=== PATIENT | male | born 1960 | race Caucasian/White ===

== ENCOUNTER 2017-12-30 08:18 | Day surgery (SDC) | payer BC ==
[~2017-12-30 08:18] MED LIST: Lactated Ringers 1,000 ML IV SCH; Lidocaine 2% 5 ML SDV ONE; Propofol 200 MG/20 ML SDV ONE; fentaNYL 100 MCG/2 ML SDV ONE
--- NOTE | 2017-12-30 09:10 | PCM.PREANE ---
Preanesthetic Assessment - Anesthesia/Transfusion/Family Hx Anesthesia History: Prior Anesthesia Without Reaction Family History of Anesthesia Reaction: No Transfusion History: No Prior Transfusion(s) - Review of Systems General: No Symptoms Pulmonary: No Symptoms Cardiovascular: No Symptoms Gastrointestinal: No Symptoms Neurological: No Symptoms Other: Reports: None - Physical Assessment NPO Status Date: 12/29/17 Height: 1.85 m Weight: 98.43 kg ASA Class: 2 Mental Status: Alert & Oriented x3 Airway Class: Mallampati = 1 Dentition: Reports: Normal Dentition ROM/Head Extension: Full Lungs: Clear to Auscultation, Normal Respiratory Effort Cardiovascular: Regular Rate, Regular Rhythm - Allergies Allergies/Adverse Reactions: Allergies Allergy/AdvReac Type Severity Reaction Status Date / Time cephalexin Allergy Nausea and Verified 12/27/17 10:30 Vomiting clindamycin Allergy Nausea and Verified 12/27/17 10:30 Vomiting codeine Allergy Nausea and Verified 12/27/17 10:30 Vomiting - Anesthesia Plan Pre-Op Medication Ordered: None - Acknowledgements Anesthesia Type Planned: MAC Pt an Appropriate Candidate for the Planned Anesthesia: Yes Alternatives and Risks of Anesthesia Discussed w Pt/Guardian: Yes Pt/Guardian Understands and Agrees with Anesthesia Plan: Yes Additional Comments: PMH: Rheumatoid arthritis listed in active problem list. But pt co pain in hios , and had DJD c^ disease. Ho peripheral joint involvement. no signs of RA on exam of hands. Not on medications expected for a patient with RA. May be an error in the chart. Pt may have OA or DJD. Full cerv extension. PLAN: MAC PreAnesthesia Questionnaire HEENT History: Reports: None Gastrointestinal History: Reports: GERD Genitourinary History: Reports: None Musculoskeletal History: Reports: Arthritis, Fracture Other Musculoskeletal History: DJD, hx fx rt heel Dermatologic History: Reports: Eczema, Psoriasis - Past Surgical History Head Surgeries/Procedures: Reports: None HEENT Surgical History: Reports: Oral Surgery GI Surgical History: Reports: Hernia, Abdominal, Hernia, Inguinal Other GI Surgeries/Procedures: cynthia inguinal hernia repair x2, umbilical hernia repair Male Surgical History: Reports: Vasectomy - SUBSTANCE USE Smoking Status *Q: Former Smoker Tobacco Use Within Last Twelve Months: No Recreational Drug Use History: No - HOME MEDS Home Medications: Home Meds Flurbiprofen 50 mg PO BID 12/27/17 [History] Gluc HCl/Csa/Tsering Hy/Hyalur Ac [Glucosamine Chondroitin] 1 tab PO DAILY [History] Hydrocortisone [Hydrocortisone 1% Crm] 1 applic TOP ASDIRECTED PRN 12/27/17 [ History] Ibuprofen [Advil] 1 tab PO ASDIRECTED 12/27/17 [History] Magnesium Oxide [Magnesium] 400 mg PO DAILY 12/27/17 [History] Sucralfate 1 gm PO ASDIRECTED 12/27/17 [History] - CURRENT (IN HOUSE) MEDS Current Meds: Current Medications Lactated Ringer's (Ringers, Lactated) 1,000 mls @ 125 mls/hr IV ASDIRECTED LEONORA Discontinued Medications Fentanyl (Sublimaze) Confirm Administered Dose 100 mcg .ROUTE .STK-MED ONE Stop: 12/30/17 06:59 Lidocaine (Xylocaine-Mpf 2%) Confirm Administered Dose 5 ml .ROUTE .STK-MED ONE Stop: 12/30/17 06:59 Propofol (Diprivan 20 Ml) Confirm Administered Dose 400 mg .ROUTE .STK-MED ONE Stop: 12/30/17 06:59
[2017-12-30] MEDS ORDERED: Glycopyrrolate 0.2 MG/ML SDV ONE (09:54)
--- NOTE | 2017-12-30 10:27 | PCM.OPNOTE ---
- General Post-Op/Procedure Note Date of Surgery/Procedure: 12/30/17 Operative Procedure(s): Colonoscopy with cold transverse colon polypectomy Pre Op Diagnosis: Desire for colorectal cancer screening. Post-Op Diagnosis: Transverse colon polyp. Sigmoid diverticulosis. Anesthesia Technique: MAC (ASA II) Primary Surgeon: Alonso Ruiz Condition: Good Free Text/Narrative:: DICTATION [id number] CPT CODE [id number]
[2017-12-30] MEDS ORDERED: Lactated Ringers 1,000 ML IV SCH (10:30)
--- NOTE | 2017-12-30 10:38 | PCM.POSTAN ---
POST ANESTHESIA ASSESSMENT - MENTAL STATUS Mental Status: Alert, Oriented - RESPIRATORY Respiratory Status: Respiratory Rate WNL, Airway Patent, O2 Saturation Stable - CARDIOVASCULAR CV Status: Pulse Rate WNL, Blood Pressure Stable - GASTROINTESTINAL GI Status: No Symptoms - PAIN Pain Score: 0 - POST OP HYDRATION Hydration Status: Adequate & Stable
--- NOTE | 2017-12-30 10:52 | PCM48HPAN ---
Post Anesthesia Note - EVALUATION WITHIN 48HRS OF ANESTHETIC Vital Signs in Normal Range: Yes Patient Participated in Evaluation: Yes Respiratory Function Stable: Yes Airway Patent: Yes Cardiovascular Function Stable: Yes Hydration Status Stable: Yes Pain Control Satisfactory: Yes Nausea and Vomiting Control Satisfactory: Yes Mental Status Recovered: Yes Resp Rate: 12
--- NOTE | 2017-12-30 11:28 | OR ---
SURGEON: Alonso Ruiz M.D. DATE OF PROCEDURE: 12/30/2017 OPERATION PERFORMED: Colonoscopy with cold transverse colon polypectomy. ANESTHESIA: MAC. ASA CLASSIFICATION: II. PREOPERATIVE DIAGNOSIS: Desire for colorectal cancer screening. POSTOPERATIVE DIAGNOSES: 1. Transverse colon polyp. 2. Sigmoid diverticulosis. DESCRIPTION OF PROCEDURE: The patient was taken to the endoscopy room, positioned on the endoscopy table in the left lateral decubitus position. Time-out was called for appropriate identification of the patient and procedure. Monitored anesthesia care was provided. The colonoscope was inserted into the rectum and advanced with moderate difficulty to the cecum where the colonoscope was retroflexed to visualize the ascending colon from below. The colonoscope was then straightened and slowly withdrawn. The cecum and ascending colon showed no tumors, polyps, diverticula, or angiodysplastic changes. One small polyp was encountered in the transverse colon and removed with cold biopsy forceps. The remainder of the transverse colon, splenic flexure, and descending colon showed no other tumors, polyps, diverticula, or angiodysplastic changes. Moderate diverticular changes were noted in the sigmoid colon. No polyps were encountered in the sigmoid colon. There was no evidence of inflammatory bowel disease. Once the colonoscope was withdrawn to the rectum, it was retroflexed to visualize the anal orifice from above. No tumors or polyps were seen. There were some chronic hemorrhoidal changes. No acute lesions were identified. The colonoscope was then straightened, the rectum aspirated, and the colonoscope removed. The patient tolerated the procedure well and was taken to recovery room in stable condition. NAYELI / DOMINICK /[id number]
== END 2017-12-30 11:50 | disposition home or self-care (01) ==
LOC: MW.SDS 08:18
PROVIDERS: ATTEND Surgery
DX: Z12.11 Encounter for screening for malignant neoplasm of colon (principal); D12.3 Benign neoplasm of transverse colon; K57.30 Diverticulosis of large intestine without perforation or abscess without bleeding; K64.9 Unspecified hemorrhoids; Z87.891 Personal history of nicotine dependence; Z79.899 Other long term (current) drug therapy; Z88.1 Allergy status to other antibiotic agents; Z88.5 Allergy status to narcotic agent
CPT/HCPCS: 45380; J3010; J2704

== ENCOUNTER 2018-01-27 07:01 | Day surgery (SDC) | payer BC ==
[~2018-01-27 07:01] MED LIST changes: +Ciprofloxacin in D5W 400 MG in Premix Bag 1 BAG IV SCH; -Lidocaine 2% 5 ML SDV ONE; -Propofol 200 MG/20 ML SDV ONE; -fentaNYL 100 MCG/2 ML SDV ONE
--- NOTE | 2018-01-27 08:39 | PCM.PREANE ---
Preanesthetic Assessment - Procedure Proposed Procedure: repair recurrent right inguinal hernia with mesh - Anesthesia/Transfusion/Family Hx Anesthesia History: Prior Anesthesia Without Reaction Family History of Anesthesia Reaction: No Transfusion History: No Prior Transfusion(s) - Review of Systems Other: Reports: None - Physical Assessment NPO Status Date: 01/26/18 NPO Status Time: 18:00 O2 Sat by Pulse Oximetry: 98 Respiratory Rate: 16 Vital Signs: Last Vital Signs Temp 38.1 C 01/27/18 07:20 Pulse Resp 16 01/27/18 07:20 BP 125/63 01/27/18 07:20 Pulse Ox 98 01/27/18 07:20 Height: 6 ft 1 in Weight: 98.43 kg ASA Class: 2 Mental Status: Alert & Oriented x3 Airway Class: Mallampati = 1 Dentition: Reports: Normal Dentition Thyro-Mental Finger Breadths: 3 Mouth Opening Finger Breadths: 3 ROM/Head Extension: Full - Allergies Allergies/Adverse Reactions: Allergies Allergy/AdvReac Type Severity Reaction Status Date / Time cephalexin Allergy Nausea and Verified 01/24/18 09:37 Vomiting clindamycin Allergy Nausea and Verified 01/24/18 09:37 Vomiting codeine Allergy Nausea and Verified 01/24/18 09:37 Vomiting - Acknowledgements Anesthesia Type Planned: General Anesthesia (ETT) Pt an Appropriate Candidate for the Planned Anesthesia: Yes Alternatives and Risks of Anesthesia Discussed w Pt/Guardian: Yes Pt/Guardian Understands and Agrees with Anesthesia Plan: Yes PreAnesthesia Questionnaire HEENT History: Reports: None Gastrointestinal History: Reports: GERD Genitourinary History: Reports: None Musculoskeletal History: Reports: Fracture Other Musculoskeletal History: hx fx heel, degenerative disc disease Dermatologic History: Reports: Eczema, Psoriasis - Past Surgical History Head Surgeries/Procedures: Reports: None HEENT Surgical History: Reports: Oral Surgery GI Surgical History: Reports: Colonoscopy, Hernia, Abdominal, Hernia, Inguinal Other GI Surgeries/Procedures: hx cynthia inquinal hernia repair & umbilical hernia repair Male Surgical History: Reports: Vasectomy - SUBSTANCE USE Smoking Status *Q: Former Smoker Recreational Drug Use History: No - HOME MEDS Home Medications: Home Meds Flurbiprofen 50 mg PO BID 12/27/17 [History] Gluc HCl/Csa/Tsering Hy/Hyalur Ac [Glucosamine Chondroitin] 1 tab PO DAILY [History] Hydrocortisone [Hydrocortisone 1% Crm] 1 applic TOP ASDIRECTED PRN 12/27/17 [ History] Ibuprofen [Advil] 1 tab PO ASDIRECTED PRN 12/27/17 [History] Magnesium Oxide [Magnesium] 400 mg PO DAILY 12/27/17 [History] Sucralfate 1 gm PO ASDIRECTED 12/27/17 [History] - CURRENT (IN HOUSE) MEDS Current Meds: Current Medications Ciprofloxacin/Dextrose 400 mg/ (Premix) 200 mls @ 200 mls/hr IV Q12H LEONORA Lactated Ringer's (Ringers, Lactated) 1,000 mls @ 125 mls/hr IV ASDIRECTED LEONORA Last Admin: 01/27/18 07:14 Dose: 125 mls/hr
[2018-01-27] MEDS ORDERED: fentaNYL 250 MCG/5 ML SDV ONE (08:42)
[2018-01-27] MEDS ORDERED: Midazolam 1 MG/ML 2 ML SDV ONE (08:42)
[2018-01-27] MEDS ORDERED: Lidocaine 2% 5 ML SDV ONE (08:42)
[2018-01-27] MEDS ORDERED: Propofol 200 MG/20 ML SDV ONE (08:42)
[2018-01-27] MEDS ORDERED: Bupivacaine 0.5% 10 ML SDV ONE (08:53)
[2018-01-27] MEDS ORDERED: Ciprofloxacin in D5W 200 ML ONE (09:14)
[2018-01-27] MEDS ORDERED: Ondansetron 4 MG/2 ML SDV ONE (09:21)
[2018-01-27] MEDS ORDERED: Sugammadex Sodium 200 MG/2 ML VIAL ONE (09:22)
[2018-01-27] MEDS ORDERED: Ketorolac 30 MG/ML SDV ONE (09:26)
[2018-01-27] MEDS ORDERED: Rocuronium 10 MG/ML 10 ML Syringe ONE (09:26)
[2018-01-27] MEDS ORDERED: fentaNYL 100 MCG/2 ML SDV ONE (09:59)
[2018-01-27] MEDS ORDERED: fentaNYL 100 MCG/2 ML SDV IVPUSH PRN (10:03)
[2018-01-27] MEDS ORDERED: Morphine 10 MG/ML Syringe IVPUSH PRN (10:53)
[2018-01-27] MEDS ORDERED: Ondansetron 4 MG/2 ML SDV IVPUSH PRN (10:53)
--- NOTE | 2018-01-27 10:57 | PCM.OPNOTE ---
- General Post-Op/Procedure Note Date of Surgery/Procedure: 01/27/18 Operative Procedure(s): Repair recurrent RIH w/ large Bard Perfix plug and patch Pre Op Diagnosis: Recurrent RIH Post-Op Diagnosis: Same Anesthesia Technique: General ET Tube (ASA II) Primary Surgeon: Alonso Ruiz Fluid Replacement, Intraop: 1,900 EBL in mLs: 10 Condition: Good Free Text/Narrative:: DICTATION [id number] CPT CODE 26215
[2018-01-27] MEDS ORDERED: Lactated Ringers 1,000 ML IV SCH (11:00)
--- NOTE | 2018-01-27 13:07 | OR ---
SURGEON: Alonso Ruiz M.D. DATE OF PROCEDURE: 01/27/2018 OPERATION PERFORMED: Repair of recurrent right inguinal hernia with large Bard PerFix plug and patch. ANESTHESIA: General endotracheal. ASA CLASSIFICATION: II. PREOPERATIVE DIAGNOSIS: Recurrent right inguinal hernia. POSTOPERATIVE DIAGNOSIS: Recurrent right inguinal hernia. ESTIMATED BLOOD LOSS: 10 mL. INTRAOPERATIVE FLUID REPLACEMENT: 10 mL of crystalloid. DESCRIPTION OF PROCEDURE: The patient was taken to the operating room and placed on the operating table in the supine position. Time-out was called for appropriate identification of patient and procedure. Thigh-high TEDs and sequential compression boots were placed. The surgical site had been marked prior to the patient entering the operating room. Following satisfactory attainment of general endotracheal anesthesia, the abdomen was prepped with DuraPrep solution. Sterile drapes were applied. The skin incision was marked out in the right inguinal crease. The skin was then infiltrated with 10 mL of 0.5% Marcaine solution. The skin incision was made and deepened through the subcutaneous tissue obtaining hemostasis with use of electrocautery. The external oblique fascia was opened in the direction of its fibers and retracted. The patient does have a medial defect. This was dissected away from the spermatic cord, which was then encircled with a Bryan drain. A large Bard PerFix plug and patch was brought to the operating table and soaked in Ciprofloxacin antibiotic solution. The plug was placed into the medial defect and secured anteriorly and inferiorly with 0 Ethibond sutures. The patch was placed over this and repair carried out from medial to lateral. Inferiorly, sutures were placed to Elton's ligament transitioning to the inguinal ligament with care taken to incorporate both plug and patch to prevent migration. Superiorly, sutures were placed from the mesh to the transversalis fascia. The wings of the patch were brought around the cord and secured laterally with 0 Ethibond. All sutures except the lateral suture were tied down. The patient was given Valsalva maneuver to 50 cm of water and the repair was solid. The lateral stitch was secured to prevent a lateral recurrence. Care was taken not to impinge upon the cord. The wound was then inspected for hemostasis. No bleeding was noted. The wound was irrigated with ciprofloxacin antibiotic solution and all fluid was aspirated. The cord was returned to its anatomic location. The external oblique fascia was reapproximated with 3-0 Vicryl. Laurel's fascia was closed with 3-0 Vicryl and skin edges reapproximated with subcuticular 4-0 Monocryl. Steri-Strips were placed over the skin followed by Tegaderm dressing. Sponge, needle, and instrument counts were all correct. The patient tolerated the procedure well. Following emergence from anesthesia and extubation, he was taken to recovery room in satisfactory condition. NAYELI TAN /[id number]
== END 2018-01-27 14:41 | disposition home or self-care (01) ==
LOC: MW.SDS 07:01
PROVIDERS: ATTEND Surgery
DX: K40.91 Unilateral inguinal hernia, without obstruction or gangrene, recurrent (principal); K21.9 Gastro-esophageal reflux disease without esophagitis; Z87.891 Personal history of nicotine dependence; Z79.899 Other long term (current) drug therapy; Z88.1 Allergy status to other antibiotic agents; Z88.5 Allergy status to narcotic agent
CPT/HCPCS: 49520; J0744; J1885; J2250; J2405; J3010; J3490; J7120; C1781; J2704